=== PATIENT | male | born 1950 | race Asian ===

== ENCOUNTER → 2018-04-13 | Outpatient (CLI) | payer MEDICARE, OTHER | END | disposition home or self-care (01) | LOC: LABPV 10:55 | PROVIDERS: ATTEND Legal Medicine | DX: M19.071 Primary osteoarthritis, right ankle and foot (principal); M47.816 Spondylosis without myelopathy or radiculopathy, lumbar region; I10 Essential (primary) hypertension | CPT/HCPCS: 72100 ==